=== PATIENT | female | born 1955 | race Two or more races ===

== ENCOUNTER 2024-06-13 13:45 | Emergency (ER) | payer OTHER ==
[~2024-06-13] VITALS: Ht 170.2 cm; Wt 93.0 kg
[2024-06-13] MEDS ORDERED: LISINOPRIL10 MG (14:09)
[2024-06-13] MEDS ORDERED: KETOROLAC TROMETHAMINE 60 MG VIAL IM ONE ×2 (15:00→15:14)
== END 2024-06-13 19:00 | disposition home or self-care (01) ==
LOC: ER 13:47
DX: M25.562 Pain in left knee (principal); W19.XXXA Unspecified fall, initial encounter
CPT/HCPCS: 71111; 72170; 73030; 73070; 73502; 73560; 96372; 99283; J1885